=== PATIENT | male | born 1930 | race Caucasian/White ===

== ENCOUNTER 2017-01-12 05:00 | Emergency (ER) | payer MEDICARE ==
[~2017-01-12] VITALS: Ht 182.9 cm; Wt 77.1 kg
[2017-01-12 05:15] VITALS: BP 133/79
[2017-01-12] MEDS ORDERED: LOSARTAN POTASS25 MG ORAL (05:19)
[2017-01-12] MEDS ORDERED: METOPROLOL TART25 MG ORAL (05:19)
[2017-01-12] MEDS ORDERED: ALLOPURINOL100 M1 ORAL (05:19)
[2017-01-12] MEDS ORDERED: ZINC SULFATE220 M1 ORAL (05:19)
[2017-01-12] MEDS ORDERED: ATORVASTATIN CA40 MG ORAL (05:19)
[2017-01-12] MEDS ORDERED: NORCO 5-325 TA1 EAC1 ORAL (05:19)
[2017-01-12] MEDS ORDERED: ACIDOPHILUS LA1 EAC1 ORAL (05:19)
[2017-01-12] MEDS ORDERED: PLAVIX75 MG ORAL (05:19)
[2017-01-12] MEDS ORDERED: ASPIRIN EC81 MG ORAL (05:19)
[2017-01-12] MEDS ORDERED: NORCO 10-325 T1 EACH ORAL (05:19)
--- NOTE | 2017-01-12 05:29 | Emergency Room Report ---
History of Present Illness General Chief Complaint: Abdominal Pain Source: Patient, Medical Record Present Illness HPI Patient is a 86-year-old male brought in by EMS from nursing facility. The patient was noted to have increased abdominal pain. Patient reported having pain in the epigastric and left lower quadrant area. He reported having a normal bowel movement earlier in the day. The patient had been having nausea without vomiting. Patient recently been given [place] without improvement in the pain. The patient was noted to have some abdominal x-rays ordered previously which showed some dilated loops of bowel consistent with an ileus. He denied any black or bloody stool Allergies: Coded Allergies: CEPHALEXIN (Verified Allergy, Unknown, 01/12/17) LISINOPRIL (Verified Allergy, Unknown, 01/12/17) Patient History Past Medical History: see triage record Reviewed Nursing Documentation: PMH: Agreed, PSxH: Agreed Nursing Documentation-PMH Hx Hypertension: Yes Hx Diabetes: Yes Review of Systems All Other Systems: negative except mentioned in HPI Physical Exam Vital Signs Date Time Temp Pulse Resp B/P Pulse Ox O2 Delivery O2 Flow Rate FiO2 01/12/17 05:04 98.1 115 20 154/92 100 Room Air Sp02 EP Interpretation: reviewed, normal General Appearance: normal inspection, alert, GCS 15, mild distress Head: atraumatic ENT: normal ENT inspection, hearing grossly normal, normal voice Neck: normal inspection, full range of motion, supple, no bony tend Respiratory: normal inspection, lungs clear, normal breath sounds, no respiratory distress, no retraction, no wheezing Cardiovascular #1: regular rate, rhythm, no edema Gastrointestinal: normal inspection, normal bowel sounds, soft, no guarding, no hernia, tenderness - llq, epigastric Genitourinary: no CVA tenderness Musculoskeletal: normal inspection, back normal, normal range of motion Neurologic: normal inspection, alert, oriented x3, responsive, band tacker III-XII nml as tested, speech normal Psychiatric: normal inspection, judgement/insight normal, mood/affect normal Skin: normal inspection, normal color, no rash Medical Decision Making Diagnostic Impression: Primary Impression: Abdominal pain Additional Impression: Bowel obstruction ER Course Patient presented for abdominal pain. Differential diagnoses included ischemic bowel, appendicitis, perforated viscus, abdominal aortic aneurysm, inferior myocardial infarction, viral gastroenteritis Because of complexity of patient's case laboratory testing and imaging studies were ordered. EKG interpreted by me showed accelerated junctional rhythm with a rate of 101 with a prolonged QT to acute ST or T wave changes noted , incomplete right bundle branch block. CT of the posterior by radiology showed evidence of all bowel obstruction as well as high gastric dilation. There is no definite lead point. Nasogastric G-tube was placed by nurse. Patient was [facility] with [facility] for [facility] transfer Labs Test 01/12/17 05:02 01/12/17 05:50 01/12/17 06:20 Prothrombin Time 11.1 SEC (9.30-11.50) Prothromb Time International Ratio 1.1 (0.9-1.1) Activated Partial Thromboplast Time 24 SEC (23-33) White Blood Count 16.8 K/UL (4.8-10.8) Red Blood Count 5.61 M/UL (4.70-6.10) Hemoglobin 15.0 G/DL (14.2-18.0) Hematocrit 47.3 % (42.0-52.0) Mean Corpuscular Volume 84 FL (80-99) Mean Corpuscular Hemoglobin 26.8 PG (27.0-31.0) Mean Corpuscular Hemoglobin Concent 31.8 G/DL (32.0-36.0) Red Cell Distribution Width 14.0 % (11.6-14.8) Platelet Count 320 K/UL (150-450) Mean Platelet Volume 7.5 FL (6.5-10.1) Neutrophils (%) (Auto) 82.0 % (45.0-75.0) Lymphocytes (%) (Auto) 9.4 % (20.0-45.0) Monocytes (%) (Auto) 7.9 % (1.0-10.0) Eosinophils (%) (Auto) 0.3 % (0.0-3.0) Basophils (%) (Auto) 0.4 % (0.0-2.0) Sodium Level 139 mEQ/L (135-145) Potassium Level 3.3 mEQ/L (3.4-4.9) Chloride Level 89 mEQ/L (98-107) Carbon Dioxide Level 29 mEQ/L (20-30) Anion Gap 21 (5-15) Blood Urea Nitrogen 30 mg/dL (7-23) Creatinine 1.3 mg/dL (0.7-1.2) Estimat Glomerular Filtration Rate mL/min (>60) Glucose Level 249 mg/dL (74-106) Calcium Level 9.9 mg/dL (8.6-10.2) Total Bilirubin 1.2 mg/dL (0.0-1.2) Direct Bilirubin 0.5 mg/dL (0.1-0.3) Aspartate Amino Transf (AST/SGOT) 43 U/L (5-40) Alanine Aminotransferase (ALT/SGPT) 29 U/L (3-41) Alkaline Phosphatase 222 U/L (40-129) Troponin I < 0.30 ng/mL (<=0.30) Total Protein 6.9 g/dL (6.6-8.7) Albumin 4.0 g/dL (3.5-5.2) Globulin 2.9 g/dL Albumin/Globulin Ratio 1.3 (1.0-2.7) Lipase 92 U/L (< 60) Lactic Acid Level 3.10 mmol/L (0.66-2.22) EKG Diagnostic Results Rate: tachycardiac - 101 Rhythm: NSR ST Segments: no acute changes Rhythm Strip Diag. Results EP Interpretation: yes Rhythm: NSR, no PVC's, no ectopy Last Vital Signs Date Time Temp Pulse Resp B/P Pulse Ox O2 Delivery O2 Flow Rate FiO2 01/12/17 05:04 98.1 115 20 154/92 100 Room Air Status: improved Disposition: [facility] Condition: Stable Sergio Adkins Jan 12, 2017 05:29
[2017-01-12] MEDS ORDERED: Morphine Sulfate 2mg/ml Inj IVP ONE (05:30)
[2017-01-12] MEDS ORDERED: Metoclopramide 10mg/2ml Inj IVP ONE (05:30)
[2017-01-12 06:07] LABS: BASOPHILS % (AUTO) 0.4 % (0.0-2.0); EOSINOPHILS % (AUTO) 0.3 % (0.0-3.0); LYMPHOCYTES % (AUTO) 9.4 % (20.0-45.0); MEAN CORPUSCULAR HEMOGLOBIN 26.8 PG (27.0-31.0); MEAN CORPUSCULAR HGB CONC 31.8 G/DL (32.0-36.0); MEAN CORPUSCULAR VOLUME 84 FL (80-99); MEAN PLATELET VOLUME 7.5 FL (6.5-10.1); MONOCYTES % (AUTO) 7.9 % (1.0-10.0); PLATELET COUNT 320 K/UL (150-450); RED BLOOD COUNT 5.61 M/UL (4.70-6.10); WHITE BLOOD COUNT 16.8 K/UL (4.8-10.8)
[2017-01-12 06:11] LABS: INR 1.1 (0.9-1.1); PROTHROMBIN TIME 11.1 SEC (9.30-11.50)
[2017-01-12 06:16] LABS: ALANINE AMINOTRANSFERASE 29 U/L (3-41); ALBUMIN/GLOBULIN RATIO 1.3 (1.0-2.7); ANION GAP 21 (5-15); ASPARTATE AMINO TRANSFERASE 43 U/L (5-40); CALCIUM 9.9 mg/dL (8.6-10.2); CARBON DIOXIDE 29 mEQ/L (20-30); CHLORIDE 89 mEQ/L (98-107); CREATININE 1.3 mg/dL (0.7-1.2); HEMOLYSIS 2; LIPASE 92 U/L (< 60); POTASSIUM 3.3 mEQ/L (3.4-4.9); SODIUM 139 mEQ/L (135-145); TOTAL PROTEIN 6.9 g/dL (6.6-8.7)
[2017-01-12 06:18] LABS: TROPONIN I < 0.30 ng/mL (<=0.30)
[2017-01-12 06:54] LABS: BILIRUBIN,DIRECT 0.5 mg/dL (0.1-0.3)
[2017-01-12 07:10] LABS: REFLEX LACTIC ACID YES OR NO YES
[2017-01-12 08:00] VITALS: BP 134/84
[2017-01-12 08:23] VITALS: BP 143/79
[2017-01-12 08:24] LABS: APPEARANCE,URINE SLIGHTLY CLOUDY; KETONES,URINE 2+ (NEGATIVE); LEUKOCYTE ESTERASE ,URINE 3+ (NEGATIVE); NITRITE,URINE POSITIVE (NEGATIVE); PH,URINE 5 (4.5-8.0); PROTEIN,URINE 3+ (NEGATIVE); UROBILINOGEN,URINE 1 MG/DL (0.0-1.0)
[2017-01-12] MEDS ORDERED: metroNIDAZOLE 500mg 100 ML IVPB ONE (08:30)
[2017-01-12] MEDS ORDERED: Vancomycin 1.5gm/D5W 300ml 325 ML IVPB ONE (08:30)
[2017-01-12 08:38] LABS: BACTERIA,URINE MODERATE /HPF; RBC,URINE 20-30 /HPF (0 - 0); SQUAMOUS EPITHELIAL CELL,UR OCCASIONAL /LPF (NONE/OCC)
[2017-01-12 09:13] VITALS: BP 143/79
[2017-01-12] MEDS ORDERED: Morphine Sulfate 4mg/ml Inj IVP ONE (09:30)
--- NOTE | 2017-01-12 09:43 | Diagnostic Imaging Report ---
Indication: Abdominal pain Technique: Continuous helical transaxial imaging of the abdomen and pelvis was obtained from the lung bases to the pubic symphysis. No intravenous contrast was administered. Coronal 2-D reformats were also obtained. Total Dose length Product (DLP): [address] Dose Index Volume (CTDIvol): 14 mGy Comparison: none Findings: There are is severe distention of the fluid-filled stomach and multiple moderately distended loops of small bowel noted throughout the abdomen. There are multiple loops of nondistended small bowel loops in the right lower quadrant and pelvis. By inference, there is small bowel obstruction although the point of obstruction is not elucidated on this examination. In the area of the fourth portion of the duodenum the configuration of this transition to jejunum is unusual. First the fourth portion does cross midline but courses in an oblique fashion. In other words, rather than the usual right to left course of the fourth portion of the duodenum with proximal jejunum on the left side of the abdomen, the fourth portion courses anteriorly and curves to the right (for example images 73-80, series 2). 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 There is a slight swirling of the mesenteric vessels and branches of the SMA and SMV which retain there normal relationship on transaxial images with the SMA to the left of the SMV. In addition to the normal SMA/SMV relationship, the ileocecal valve and terminal ileum are demonstrated in the normal position within the right lower quadrant. These findings argue against midgut malrotation and volvulus. There is no free air or pneumatosis. There is no free fluid. The gallbladder is distended. No obvious gallstones seen on this exam. Moderate arterial vascular consultations are present. The kidneys are somewhat atrophic. A few hypodensities are present 2 spot characterize possibly cystic. An isointense exophytic one CM lesion in the left kidney projecting posteriorly noted. An exophytic 5 mm hyperdense nodule projecting posteriorly from the upper pole the right kidney noted. These are oblique proteinaceous cysts. Adrenal glands are grossly unremarkable. Spleen is normal in size. The lung bases are clear. There is narrowing of intervertebral discs and accompanying endplate osteophyte formation. Hypertrophied facet joints also demonstrated. At T12 there is a rounded sclerotic focus in the mid part of the vertebral body. At T8 and T9 the vertebral appear markedly abnormal and sclerotic. The possibility of sclerotic metastatic neoplasm should be considered. Consider bone scan for further evaluation. Obviously clinical correlation is needed for any history of cancer. There is a left dynamic hip screw noted. Impression: Evidence of small bowel obstruction. Point of transition not definitely seen but likely within the mid-jejunum. 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 Some features of this are atypical (SMA/SMV relationship is normal and cecum position is normal in the right lower quadrant). The other possibility is an internal hernia involving the upper abdomen. Suspicion of metastatic neoplasm involving the bones with multiple sclerotic foci. Please correlate clinically. Bone scan may be helpful for further evaluation. Atherosclerotic vascular disease Left dynamic hip screw Small bilateral renal masses possibly hemorrhagic or proteinaceous cysts. Some hypodensities are too small to characterize adequately on this study. Diverticulosis of colon The CT scanner at [facility] is accredited by the [employer] and the scans are performed using protocols designed to limit radiation exposure to as low as reasonably achievable to attain images of sufficient -- resolution adequate for diagnostic evaluation.
== END 2017-01-12 09:13 | disposition short-term general hospital (02) ==
LOC: EDBD 05:00 → EMR 05:22
DX: R10.13 Epigastric pain (principal); K56.60 Unspecified intestinal obstruction; K57.30 Diverticulosis of large intestine without perforation or abscess without bleeding; I10 Essential (primary) hypertension; E11.9 Type 2 diabetes mellitus without complications; Z88.8 Allergy status to other drugs, medicaments and biological substances; Z88.1 Allergy status to other antibiotic agents
CPT/HCPCS: 36415; 74176; 80053; 81003; 82248; 83605; 83690; 84484; 85025; 85610; 85730; 86850; 86900; 86901; 87040; 87086; 87181; 93005; 96374; 96375; 99285; J2270; J2765; J3370